=== PATIENT | female | born 1975 | race Caucasian/White ===

== ENCOUNTER 2019-03-01 20:38 | Emergency (ER) | payer BC ==
[2019-03-01] MEDS ORDERED: Ketorolac 60 MG/2 ML SDV IM ONE (21:38)
[2019-03-01] MEDS ORDERED: diphenhydrAMINE 50 MG/ML SDV IM ONE (21:39)
[2019-03-01] MEDS ORDERED: Metoclopramide 10 MG/2 ML SDV IM ONE (21:39)
--- NOTE | 2019-03-01 21:44 | EDM.PDOC ---
ED HPI GENERAL MEDICAL PROBLEM - General Chief Complaint: Headache Time Seen by Provider: 03/01/19 21:35 Source of Information: Reports: Patient History Limitations: Reports: No Limitations - History of Present Illness INITIAL COMMENTS - FREE TEXT/NARRATIVE: Larisa is a 43 year old female who presents to the ED today with c/o migraine headache, patient hx of migraine headaches, has taken Maxalt without relief. Patient took Ibuprofen and tylenol without relief today, last dose of these around 1500. Patient endorses photophobia and nausea, had had no vomiting. Patient denies any fever, head injury/trauma, denies any neck stiffness. Onset: Gradual Headache Pain Score (Numeric/FACES): 10 - Related Data Allergies Allergy/AdvReac Type Severity Reaction Status Date / Time No Known Allergies Allergy Verified 01/26/14 19:00 Home Meds: Home Meds Rizatriptan Benzoate [Rizatriptan] 10 mg PO ASDIRECTED PRN 03/01/19 [History] Topiramate 100 mg PO DAILY 03/01/19 [History] Past Medical History [employer] History: Reports: - Past Surgical History Female Surgical History: Reports: Hysterectomy Musculoskeletal Surgical History: Reports: Shoulder Surgery Social & Family History - Tobacco Use Smoking Status *Q: Never Smoker - Caffeine Use Caffeine Use: Reports: Soda - Recreational Drug Use Recreational Drug Use: No ED ROS GENERAL - Review of Systems Review Of Systems: ROS reveals no pertinent complaints other than HPI. - Physical Exam Exam: See Below Exam Limited By: No Limitations General Appearance: Alert, WD/WN, No Apparent Distress Eye Exam: Bilateral Eye: EOMI, PERRL Ears: Normal External Exam Nose: Normal Inspection Throat/Mouth: Normal Inspection, Normal Oropharynx Head Exam: Atraumatic, Normocephalic Neck: Supple, Non-Tender, Full Range of Motion Respiratory/Chest: No Respiratory Distress, Lungs Clear Cardiovascular: Normal Peripheral Pulses, Regular Rate, Rhythm Neuro Exam (Abbreviated): Alert, Oriented, CN II-XII Intact, Normal Cognition, Normal Reflexes, No Motor/Sensory Deficits Extremities: Normal Inspection Psychiatric: Normal Affect, Normal Mood Skin Exam: Warm, Dry, Intact Course - Vital Signs Last Recorded V/S: Last Vital Signs Temp 36.9 C 03/01/19 21:26 Pulse 83 03/01/19 21:26 Resp 16 03/01/19 21:26 BP 150/93 H 03/01/19 21:26 Pulse Ox 100 03/01/19 21:26 Larisa is a 43 year old female who presents to the ED today with c/o migraine headache since Sunday. No relief with OTC meds and prescribed maxalt. Please refer to HPI and focused exam. Patient arrives here hemodynamically stable and afebrile, no neuro/focal deficit on exam, no signs of meningismus. Patient was given IM Toradol, Reglan and Benadryl here. Patient requesting discharge after injections given, discussed monitoring for any evidence of allergic reaction which patient was not concerned with and wants to go home to go to bed, reasons to return to the ED discussed, patient agreeable and discharged in stable condition with her family driving. - Orders/Labs/Meds Meds: Medications Discontinued Medications Generic Name Dose Route Start Last Admin Trade Name Freq PRN Reason Stop Dose Admin Diphenhydramine HCl 50 mg 03/01/19 21:39 03/01/19 21:45 Benadryl IM 03/01/19 21:40 50 mg ONETIME ONE Administration Ketorolac Tromethamine 60 mg 03/01/19 21:38 03/01/19 21:45 Toradol IM 03/01/19 21:39 60 mg ONETIME ONE Administration Metoclopramide HCl 10 mg 03/01/19 21:39 03/01/19 21:45 Reglan IM 03/01/19 21:40 10 mg ONETIME ONE Administration Departure - Departure Time of Disposition: 22:30 Disposition: Home, Self-Care 01 Condition: Good Clinical Impression: Migraine - Discharge Information Instructions: Migraine Headache, [id number] Referrals: PCP,None [Primary Care Provider] - Forms: ED Department Discharge
== END 2019-03-01 21:54 | disposition home or self-care (01) ==
LOC: JP.ED 20:38
DX: G43.909 Migraine, unspecified, not intractable, without status migrainosus (principal); Z79.899 Other long term (current) drug therapy
CPT/HCPCS: 96372; 99283; J1200; J1885; J2765

== ENCOUNTER 2023-01-19 10:53 | Emergency (ER) | payer BC ==
[2023-01-19] MEDS ORDERED: Ketorolac 30 MG/ML SDV IVPUSH ONE (11:52)
[2023-01-19] MEDS ORDERED: Ondansetron 4 MG/2 ML SDV IVPUSH ONE (11:52)
[2023-01-19 11:58] LABS: HEMATOCRIT 42.1 % (34.3-46.0); HEMOGLOBIN 14.5 g/dL (11.2-15.5); MEAN CORPUSCULAR HEMOGLOBIN 32.9 pg (31.6-35.5); MEAN CORPUSCULAR HGB CONC 34.4 g/dL (31.6-35.5); MEAN CORPUSCULAR VOLUME 95.5 fL (81.4-99.0); RED BLOOD CELL COUNT 4.41 M/uL (3.77-5.24); WHITE BLOOD CELL COUNT,WBC 4.9 K/uL (3.2-11.0)
[2023-01-19] MEDS ORDERED: Sodium Chloride 0.9% 1,000 ML IV SCH (12:00)
[2023-01-19] MEDS ORDERED: Sodium Chloride 0.9% 50 ML IV ONE (12:03)
[2023-01-19] MEDS ORDERED: Sodium Chloride 0.9% 10 ML Syringe FLUSH ONE (12:03)
[2023-01-19] MEDS ORDERED: Iopamidol 612 MG/ML 100 ML Bottle IV ONE (12:03)
[2023-01-19 12:14] LABS: APPEARANCE,URINE CLEAR (CLEAR); BILIRUBIN,URINE NEGATIVE (NEGATIVE); COLOR,URINE YELLOW (YELLOW); GLUCOSE,URINE NEGATIVE (NEGATIVE); KETONES,URINE NEGATIVE (NEGATIVE); LEUKOCYTE ESTERASE,URINE NEGATIVE (NEGATIVE); NITRITE,URINE NEGATIVE (NEGATIVE); OCCULT BLOOD,URINE NEGATIVE (NEGATIVE); PROTEIN,URINE NEGATIVE (NEGATIVE); UROBILINOGEN,URINE 0.2 EU/dL (0.2-1.0)
[2023-01-19 12:14] LABS: PROTHROMBIN TIME 10.1 sec (9.2-10.6)
[2023-01-19 12:18] LABS: ALANINE AMINOTRANSFERASE,ALT 22 U/L (12-78); ALBUMIN 3.4 g/dL (3.4-5.0); ALKALINE PHOSPHATASE 112 U/L (46-116); ANION GAP 9.6 mmol/L (5.0-14.0); ASPARTATE AMNIOTRANSFERASE,AST 16 U/L (15-37); BILIRUBIN TOTAL 0.2 mg/dL (0.2-1.0); BLOOD UREA NITROGEN,BUN 8 mg/dL (7-18); CALCIUM 8.3 mg/dL (8.5-10.1); CARBON DIOXIDE,CO2 27 mmol/L (21-32); CHLORIDE,CL 105 mmol/L (100-108); CREATININE 0.8 mg/dL (0.6-1.0); EST CRCL DRUG DOSING (CG) 82.72 mL/min; ESTIMATED GFR 90 mL/min (>60); GLUCOSE RANDOM 96 mg/dL (74-106); POTASSIUM,K 3.6 mmol/L (3.6-5.2); PROTEIN TOTAL,TP 6.7 g/dL (6.4-8.2); SODIUM,NA 138 mmol/L (140-148)
[2023-01-19 12:25] LABS: AMORPHOUS SEDIMENT,URINE NOT SEEN; BACTERIA,URINE RARE; EPITHELIAL CELLS,URINE RARE; MUCUS,URINE NOT SEEN; RBC,URINE 0-5 (0-5); WBC,URINE NOT SEEN (0-5)
[2023-01-19] MEDS ORDERED: Iopamidol 755 Mg/ML 100 ML Bottle IV SCH (12:30)
== END 2023-01-19 14:33 | disposition home or self-care (01) ==
LOC: JP.ED 10:53
DX: N20.0 Calculus of kidney (principal); E78.00 Pure hypercholesterolemia, unspecified; Z79.899 Other long term (current) drug therapy
CPT/HCPCS: 36415; 71275; 74150; 80053; 81001; 81025; 83605; 83690; 85027; 85379; 85610; 96361; 96374; 99285; J1885; J3490; J7030; Q9967

== ENCOUNTER 2024-07-21 07:46 | Day surgery (SDC) | payer BC ==
[~2024-07-21 07:46] MED LIST: Dexamethasone 4 MG/ML SDV ONE; Ondansetron 4 MG/2 ML SDV ONE; Propofol 200 MG/20 ML SDV ONE; fentaNYL 250 MCG/5 ML SDV ONE
[2024-07-21 08:15] LABS: HEMOGLOBIN 13.8 g/dL (11.2-15.5); MEAN CORPUSCULAR HEMOGLOBIN 33.6 pg (31.6-35.5); MEAN CORPUSCULAR HGB CONC 34.5 g/dL (31.6-35.5); MEAN CORPUSCULAR VOLUME 97.3 fL (81.4-99.0); RED BLOOD CELL COUNT 4.11 M/uL (3.77-5.24); WHITE BLOOD CELL COUNT,WBC 5.9 K/uL (3.2-11.0)
[2024-07-21 08:31] LABS: ANION GAP 11.3 mmol/L (5.0-14.0); CALCIUM 8.7 mg/dL (8.5-10.1); CREATININE 0.9 mg/dL (0.6-1.0); EST CRCL DRUG DOSING (CG) 72.72 mL/min; POTASSIUM,K 3.9 mmol/L (3.6-5.2)
[2024-07-21] MEDS: Nozin Nasal Sanitizer NASBOTH ONE (08:41)
[2024-07-21] MEDS: Lactated Ringers 1,000 ML IV SCH (08:45)
[2024-07-21] MEDS ORDERED: ceFAZolin 2 GM in Premix Bag 1 BAG IV ONE (09:00)
[2024-07-21] MEDS: ceFAZolin 2 GM in Water For Injection, Sterile 20 ML IV ONE (09:50)
[2024-07-21] MEDS: Bupivacaine 0.5% 30 ML SDV ONE (10:21)
[2024-07-21] MEDS ORDERED: Ketorolac 30 MG/ML SDV ONE (10:27)
[2024-07-21] MEDS ORDERED: Rizatriptan ODT 10 MG Tab PO PRN (11:07)
[2024-07-21] MEDS ORDERED: oxyCODONE 5 MG Tab PO PRN (11:08)
[2024-07-21] MEDS ORDERED: Ketorolac 15 MG/ML SDV IVPUSH PRN (11:09)
[2024-07-21] MEDS ORDERED: Magnesium Hydroxide 400 MG/5 ML Susp 30 ML Cup PO PRN (11:09)
[2024-07-21] MEDS ORDERED: Docusate Sodium 100 MG Cap PO PRN (11:09)
[2024-07-21] MEDS ORDERED: Ondansetron 4 MG/2 ML SDV IVPUSH PRN (11:09)
[2024-07-21] MEDS ORDERED: Acetaminophen/oxyCODONE 325-5 MG Tab PO PRN (11:42)
[2024-07-21] MEDS: Morphine 2 MG/ML SYRINGE IVPUSH PRN (11:56)
[2024-07-21] MEDS: oxyCODONE 5 MG Tab PO PRN (12:29)
[2024-07-21] MEDS: Acetaminophen 325 MG Tab PO SCH (15:06)
[2024-07-21] MEDS ORDERED: Sodium Chloride 0.9% 1,000 ML IV SCH (16:00)
[2024-07-21] MEDS ORDERED: ceFAZolin 2 GM in Premix Bag 1 BAG IV SCH (17:00)
[2024-07-21] MEDS ORDERED: Zolpidem 5 MG Tab PO SCH (21:00)
[2024-07-21] MEDS ORDERED: Nozin Nasal Sanitizer NASBOTH SCH (21:00)
[2024-07-21] MEDS ORDERED: Rosuvastatin 10 MG Tab PO SCH (21:00)
[2024-07-22] MEDS ORDERED: DULoxetine 30 MG Cap PO SCH (09:00)
[2024-07-22] MEDS ORDERED: Topiramate 100 MG Tab PO SCH (09:00)
[2024-07-22] MEDS ORDERED: Metoprolol Succinate 25 MG Tab.ER PO SCH (09:00)
== END 2024-07-21 17:07 | disposition home or self-care (01) ==
LOC: JP.SDS 07:46 → UNDOADMIN 11:09 → JP.MS 11:09 → UNDODISIN 17:07 → JP.SDS 17:07
PROVIDERS: ATTEND Specialist
DX: S82.041A Displaced comminuted fracture of right patella, initial encounter for closed fracture (principal); E78.5 Hyperlipidemia, unspecified; X58.XXXA Exposure to other specified factors, initial encounter
CPT/HCPCS: 01392; 27524; 36415; 76000; 80048; 85027; 97116; 97161; 97165; 97535; A9270; C1713; J0665; J0690; J1100; J1885; J2270; J2405; J2704; J3010; J7120

== ENCOUNTER 2025-01-05 06:57 | Day surgery (SDC) | payer BC ==
[2025-01-05 07:19] LABS: HEMATOCRIT 46.4 % (34.3-46.0); MEAN CORPUSCULAR HGB CONC 34.5 g/dL (31.6-35.5); MEAN CORPUSCULAR VOLUME 95.7 fL (81.4-99.0); RED BLOOD CELL COUNT 4.85 M/uL (3.77-5.24); WHITE BLOOD CELL COUNT,WBC 6.7 K/uL (3.2-11.0)
[2025-01-05] MEDS ORDERED: Propofol 200 MG/20 ML SDV ONE (07:22)
[2025-01-05] MEDS ORDERED: fentaNYL 100 MCG/2 ML SDV ONE (07:22)
[2025-01-05] MEDS ORDERED: Midazolam 1 MG/ML 2 ML SDV ONE (07:22)
[2025-01-05 07:34] LABS: ANION GAP 14.5 mmol/L (5.0-14.0); CALCIUM 8.8 mg/dL (8.5-10.1); CREATININE 1.1 mg/dL (0.6-1.0); EST CRCL DRUG DOSING (CG) 58.84 mL/min; POTASSIUM,K 3.5 mmol/L (3.6-5.2)
[2025-01-05] MEDS: Nozin Nasal Sanitizer NASBOTH ONE (07:43)
[2025-01-05] MEDS: Lactated Ringers 1,000 ML IV SCH (07:58)
[2025-01-05] MEDS: ceFAZolin 1 GM in Premix Bag 1 BAG IV ONE (08:40)
[2025-01-05] MEDS ORDERED: Ondansetron 4 MG/2 ML SDV ONE (08:51)
[2025-01-05] MEDS ORDERED: Dexamethasone 4 MG/ML SDV ONE (08:51)
[2025-01-05] MEDS: Bupivacaine 0.5% 50 ML MDV ONE (09:10)
[2025-01-05] MEDS ORDERED: Ketorolac 30 MG/ML SDV ONE (09:13)
[2025-01-05] MEDS: Acetaminophen/HYDROcodone 325-5 MG Tab PO PRN (10:20)
== END 2025-01-05 11:03 | disposition home or self-care (01) ==
LOC: JP.SDS 06:57
PROVIDERS: ATTEND Specialist
DX: T84.84XA Pain due to internal orthopedic prosthetic devices, implants and grafts, initial encounter (principal); E66.9 Obesity, unspecified
CPT/HCPCS: 01392; 20680; 36415; 80048; 85027; 93005; 93010; A9270; J0665; J0689; J1100; J1885; J2250; J2405; J2704; J3010; J7120